=== PATIENT | male | born 1995 | race American Indian/Alaskan Native ===

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

== ENCOUNTER 2017-03-17 01:22 | Emergency (ER) | payer MEDICAID ==
[2017-03-17 01:22] VITALS: BMI 29.4
[2017-03-17 01:47] VITALS: BP 127/75; PULSE 94; RESP 18; TEMP 98.2; O2SAT 100
[2017-03-17] MEDS ORDERED: Sodium Chloride 0.9% 1,000 ML IV STA (01:49)
--- NOTE | 2017-03-17 01:51 | ED PDOC ---
HPI: SOB/CHF/COPD Time Seen by Provider: 03/17/17 01:49 Chief Complaint (Nursing): Shortness Of Breath Chief Complaint (Provider): SOB History Per: Patient (21 Y/O MALE H/O ASTHMA NOTED WITH ACUTE ASTHMA EXACERBATION AT HOME WITHOUT IMPROVEMENT DESPITE ALBUTEROL AT HOME. WAS GIVEN SOLUMEDROL/DUONEBX3 BY MEDICS AND FEELS IMPROVED.) Past Medical History Reviewed: Historical Data, Nursing Documentation, Vital Signs Vital Signs: Last Vital Signs Temp 98.2 F 03/17/17 01:31 Pulse 94 H 03/17/17 01:31 Resp 18 03/17/17 01:31 BP 127/75 03/17/17 01:31 Pulse Ox 100 03/18/17 03:47 - Medical History PMH: Asthma, Gastritis - Surgical History Surgical History: Tonsillectomy - Family History Family History: States: No Known Family Hx - Home Medications Home Medications: Ambulatory Orders Medication Instructions Recorded Dicyclomine [Bentyl] 20 mg PO Q6H PRN #20 tab 04/08/16 Ondansetron ODT [Zofran ODT] 4 mg PO QID #20 odt 04/08/16 Clotrimazole 1% [Lotrimin AF 1%] 1 applic TOP BID #1 bottle 07/03/16 Mask, Face [Nebulizer Aerosol Mask 1 dev XX PRN PRN #1 dev 03/17/17 Adult] Prednisone [Deltasone] 3 tab PO DAILY #12 tablet 03/17/17 Pseudoephedrine [Sudafed Tab] 60 mg PO Q6 PRN #20 tab 03/17/17 - Allergies Allergies/Adverse Reactions: Allergies Allergy/AdvReac Type Severity Reaction Status Date / Time FISH Allergy RASH Verified 07/03/16 23:27 Review of Systems ROS Statement: Except As Marked, All Systems Reviewed And Found Negative Physical Exam - Reviewed Nursing Documentation Reviewed: Yes Vital Signs Reviewed: Yes - Physical Exam Appears: Positive for: Well, Non-toxic, No Acute Distress Head Exam: Positive for: ATRAUMATIC, NORMAL INSPECTION, NORMOCEPHALIC Skin: Positive for: Normal Color, Warm, DRY Eye Exam: Positive for: EOMI, Normal appearance, PERRL ENT: Positive for: Normal ENT Inspection Neck: Positive for: Normal, Painless ROM Cardiovascular/Chest: Positive for: Regular Rate, Rhythm Respiratory: Positive for: Normal Breath Sounds, Wheezing (SLIGHT WHEEZE NOTED LEFT LOWER BASE) Gastrointestinal/Abdominal: Positive for: Normal Exam, Bowel Sounds, Soft Back: Positive for: Normal Inspection Extremity: Positive for: Normal ROM Neurologic/Psych: Positive for: Alert, Oriented - ECG O2 Sat by Pulse Oximetry: 100 - Progress ED Course And Treament: NS 1 LITER WIDE OPEN upon re-evaluation, patient feels improved with no respiratory distress. Disposition - Clinical Impression Clinical Impression: Asthma exacerbation - Patient ED Disposition Is Patient to be Admitted: No - Disposition Disposition: Routine/Home Disposition Time: 03:14 Condition: FAIR Prescriptions: Mask, Face [Nebulizer Aerosol Mask Adult] 1 dev XX PRN PRN #1 dev PRN Reason: Shortness Of Breath Prednisone [Deltasone] 3 tab PO DAILY #12 tablet Pseudoephedrine [Sudafed Tab] 60 mg PO Q6 PRN #20 tab PRN Reason: Nasal Congestion Instructions: Asthma (DC) Forms: [employer] (Icelandic)
== END 2017-03-17 03:14 | disposition home or self-care (01) ==
LOC: H.ER 01:22
DX: J45.901 Unspecified asthma with (acute) exacerbation (principal)
CPT/HCPCS: 99283; J7040

== ENCOUNTER 2017-05-12 10:58 | Emergency (ER) | payer MEDICAID ==
[2017-05-12 11:08] VITALS: BMI 24.5
[2017-05-12 11:30] VITALS: BP 117/85; PULSE 88; RESP 20; TEMP 97.9; O2SAT 99
[2017-05-12] MEDS ORDERED: Sodium Chloride 0.9% 1,000 ML IV STA (11:44)
--- NOTE | 2017-05-12 11:54 | ED PDOC ---
HPI: Abdomen Time Seen by Provider: 05/12/17 11:30 Chief Complaint (Nursing): Abdominal Pain Chief Complaint (Provider): Abdominal Pain History Per: Patient History/Exam Limitations: no limitations Onset/Duration Of Symptoms: Days (x5) Current Symptoms Are (Timing): Still Present Additional Complaint(s): 22 year old male with medical history of gastritis, presents to the emergency department with a complaint of mid-abdomen pain radiating to chest associated with small, hard stools ongoing for 5 days. Patient stated last bowel movement was also 5 days ago. He denied any fever, chills, vomiting, diarrhea, prior episodes or taking any medication for pain. PMD: none provided Past Medical History Reviewed: Historical Data, Nursing Documentation, Vital Signs Vital Signs: Last Vital Signs Temp 97.9 F 05/12/17 11:27 Pulse 88 05/12/17 11:27 Resp 20 05/12/17 11:27 BP 117/85 05/12/17 11:27 Pulse Ox 99 05/12/17 12:49 - Medical History PMH: Asthma, Gastritis - Surgical History Surgical History: Tonsillectomy Denies: No Surg Hx - Family History Family History: States: Unknown Family Hx - Social History Current smoker - smoking cessation education provided: No Alcohol: None Drugs: Denies - Home Medications Home Medications: Ambulatory Orders Medication Instructions Recorded Dicyclomine [Bentyl] 20 mg PO Q6H PRN #20 tab 04/08/16 Ondansetron ODT [Zofran ODT] 4 mg PO QID #20 odt 04/08/16 Clotrimazole 1% [Lotrimin AF 1%] 1 applic TOP BID #1 bottle 07/03/16 Mask, Face [Nebulizer Aerosol Mask 1 dev XX PRN PRN #1 dev 03/17/17 Adult] Prednisone [Deltasone] 3 tab PO DAILY #12 tablet 03/17/17 Pseudoephedrine [Sudafed Tab] 60 mg PO Q6 PRN #20 tab 03/17/17 Aluminum Hydroxide/Magnesium H 30 ml PO QID PRN #240 ml 05/12/17 [Maalox 30 ml] - Allergies Allergies/Adverse Reactions: Allergies Allergy/AdvReac Type Severity Reaction Status Date / Time FISH Allergy RASH Verified 05/12/17 11:27 Review of Systems ROS Statement: Except As Marked, All Systems Reviewed And Found Negative Constitutional: Negative for: Fever, Chills Gastrointestinal: Positive for: Abdominal Pain (mid), Other (small, hard stools) . Negative for: Vomiting, Diarrhea Neurological: Positive for: Other (syncope) Physical Exam - Reviewed Nursing Documentation Reviewed: Yes Vital Signs Reviewed: Yes - Physical Exam Appears: Positive for: Uncomfortable (mild) Head Exam: Positive for: ATRAUMATIC, NORMAL INSPECTION, NORMOCEPHALIC Skin: Positive for: Normal Color Eye Exam: Positive for: Normal appearance ENT: Positive for: Normal ENT Inspection Neck: Positive for: Normal, Painless ROM, Supple Cardiovascular/Chest: Positive for: Regular Rate, Rhythm, Chest Non Tender Respiratory: Positive for: Normal Breath Sounds. Negative for: Decreased Breath Sounds, Wheezing, Respiratory Distress Gastrointestinal/Abdominal: Positive for: Bowel Sounds (decreased), Soft, Tenderness (left-sided quadrants), Guarding (voluntary). Negative for: Rebound Back: Positive for: Normal Inspection. Negative for: L CVA Tenderness, R CVA Tenderness Extremity: Positive for: Normal ROM (upper/lower) Neurologic/Psych: Positive for: Alert (x3), Oriented. Negative for: Motor/ Sensory Deficits - Laboratory Results Result Diagrams: 05/12/17 12:00 05/12/17 12:00 - ECG O2 Sat by Pulse Oximetry: 99 (RA) Pulse Ox Interpretation: Normal Medical Decision Making Medical Decision Making: Initial Impression: Abdominal pain; Syncope Differential Diagnosis: Constipation; Acute intestinal disorder Initial Plan: * EKG * CMP * Drug screen, urine * Lipase * Urine dipstick * CBC * Xray obstructive series * NS 1,000ml IV per 1,000mls/hr * Toradol 30mg IV Time: 1213 --Xray obstructive series FINDINGS: CHEST: Lungs: Clear. Cardiovascular: Normal size heart. No pulmonary vascular congestion. Pleura: No pleural fluid. No pneumothorax. Other findings: None. ABDOMEN AND PELVIS: Bowel: Unremarkable bowel gas pattern. No evidence of mechanical obstruction. Free air: None. Bones: Unremarkable. Other findings: None. IMPRESSION: Unremarkable radiographs of chest and abdomen. No evidence of mechanical bowel obstruction. Time: 1245 --Labs reviewed: no significant abnormalities. --Drug screen: negative. Scribe Attestation: Documented by Emma Howe, acting as a scribe for Madelyn Pereira MD. Provider Scribe Attestation: All medical record entries made by the Scribe were at my direction and personally dictated by me. I have reviewed the chart and agree that the record accurately reflects my personal performance of the history, physical exam, medical decision making, and the department course for this patient. I have also personally directed, reviewed, and agree with the discharge instructions and disposition. 2.00pm patient without pain. labs and imaging normal. will discharge., Disposition - Clinical Impression Clinical Impression: Abdominal cramps - Patient ED Disposition Is Patient to be Admitted: No Doctor Will See Patient In The: Office Counseled Patient/Family Regarding: Diagnosis, Need For Followup, Rx Given - Disposition Referrals: [facility] [Outside] Disposition: Routine/Home Disposition Time: 14:15 Condition: IMPROVED Prescriptions: Aluminum Hydroxide/Magnesium H [Maalox 30 ml] 30 ml PO QID PRN #240 ml PRN Reason: abdominal cramps Forms: [employer] (Gabonese) - POA Present On Arrival: None
--- NOTE | 2017-05-12 12:15 | RAD ---
PROCEDURE: Radiographs of the chest and abdomen (obstructive series) HISTORY: abd pain; acute irregular BM COMPARISON: No prior. TECHNIQUE: AP radiograph of the chest, with upright and supine radiographs of the abdomen. FINDINGS: CHEST: Lungs: Clear. Cardiovascular: Normal size heart. No pulmonary vascular congestion. Pleura: No pleural fluid. No pneumothorax. Other findings: None. ABDOMEN AND PELVIS: Bowel: Unremarkable bowel gas pattern. No evidence of mechanical obstruction. Free air: None. Bones: Unremarkable. Other findings: None. IMPRESSION: Unremarkable radiographs of chest and abdomen. No evidence of mechanical bowel obstruction.
[2017-05-12 12:18] LABS: BASO % 0.3 % (0.0-2.0); EOS # 0.4 K/uL (0.0-0.7); EOS % 4.5 % (0.0-4.0); HEMOGLOBIN 16.5 g/dL (12.0-18.0); LYMPH # 2.8 K/uL (1.0-4.3); LYMPH % 29.4 % (20.0-40.0); MEAN CELL VOLUME 83.8 fl (80.0-94.0); MEAN CORPUSCULAR HEMOGLOBIN 29.2 pg (27.0-31.0); MEAN CORPUSCULAR HGB CONC 34.8 g/dL (33.0-37.0); MEAN PLATELET VOLUME 7.9 fl (7.2-11.7); MONO # 0.5 K/uL (0.0-0.8); NEUT # 5.8 K/uL (1.8-7.0); NEUT % 60.8 % (50.0-75.0); NRBC % 0.1 % (0.0-0.0); RBC 5.65 Mil/uL (4.40-5.90); RED CELL DISTRIBUTION WIDTH 13.2 % (11.5-14.5); WHITE BLOOD COUNT 9.5 K/uL (4.8-10.8)
[2017-05-12 12:30] LABS: ALB/GLOB RATIO 1.4 (1.0-2.1); ALBUMIN 4.6 g/dL (3.5-5.0); ALT/SGPT 36 U/L (21-72); AST/SGOT 25 U/L (17-59); BLOOD UREA NITROGEN 18 mg/dl (9-20); CALCIUM 10.1 mg/dL (8.4-10.2); GFR AFRICAN-AMERICAN > 60; GFR NON-AFRICAN AMERICAN > 60; LIPASE 87 U/L (23-300)
[2017-05-12 12:44] LABS: BARBITURATES, UR NEGATIVE (NEGATIVE); BENZODIAZEPINES, UR NEGATIVE (NEGATIVE); OPIATES, UR NEGATIVE (NEGATIVE); PHENCYCLIDINE, UR NEGATIVE (NEGATIVE)
--- NOTE | 2017-05-12 20:21 | CARD ---
APPROVED REPORT EKG Measurement Heart [id number] <Conclusion> Normal sinus rhythm Early repolarization Normal ECG
== END 2017-05-12 14:25 | disposition home or self-care (01) ==
LOC: H.ER 10:58
DX: R10.9 Unspecified abdominal pain (principal); J45.909 Unspecified asthma, uncomplicated
CPT/HCPCS: 74022; 80053; 80324; 80345; 80346; 80349; 80353; 80358; 80361; 83690; 83992; 85025; 93005; 96374; 99283; J1885; J7040

== ENCOUNTER 2017-07-03 23:19 | Emergency (ER) | payer MEDICAID ==
[2017-07-03 23:20] VITALS: BMI 24.5
[2017-07-03] MEDS ORDERED: Albuterol-Ipratrop 3 mg / 0.5 (3 ml) UD IH STA (23:34)
[2017-07-03] MEDS ORDERED: DiphenhydrAMINE 50 mg/ml Inj IV STA (23:34)
--- NOTE | 2017-07-03 23:36 | ED PDOC ---
HPI: SOB/CHF/COPD Time Seen by Provider: 07/03/17 23:27 Chief Complaint (Nursing): Shortness Of Breath Chief Complaint (Provider): shortness of breath History Per: Patient History/Exam Limitations: no limitations Onset/Duration Of Symptoms: Mins Current Symptoms Are (Timing): Still Present Additional Complaint(s): 22 y/o male history of asthma and seasonal/food allergies presents for evaluation of shortness of breath, onset prior to arrival. Patient states he was eating carrots and dip and then suddenly began to feel like he could not breathe. Denies facial swelling, rash, chest pain, palpitations, abdominal pain. Past Medical History Reviewed: Historical Data, Nursing Documentation, Vital Signs Vital Signs: Last Vital Signs Temp 98.1 F 07/03/17 23:23 Pulse 73 07/03/17 23:23 Resp BP 143/87 07/03/17 23:23 Pulse Ox 99 07/03/17 23:36 - Medical History PMH: Asthma, Gastritis - Surgical History Surgical History: Tonsillectomy - Family History Family History: States: Unknown Family Hx - Home Medications Home Medications: Ambulatory Orders Medication Instructions Recorded Dicyclomine [Bentyl] 20 mg PO Q6H PRN #20 tab 04/08/16 Ondansetron ODT [Zofran ODT] 4 mg PO QID #20 odt 04/08/16 Clotrimazole 1% [Lotrimin AF 1%] 1 applic TOP BID #1 bottle 07/03/16 Mask, Face [Nebulizer Aerosol Mask 1 dev XX PRN PRN #1 dev 03/17/17 Adult] Prednisone [Deltasone] 3 tab PO DAILY #12 tablet 03/17/17 Pseudoephedrine [Sudafed Tab] 60 mg PO Q6 PRN #20 tab 03/17/17 Aluminum Hydroxide/Magnesium H 30 ml PO QID PRN #240 ml 05/12/17 [Maalox 30 ml] Famotidine [Pepcid] 20 mg PO BID #8 tab 07/04/17 predniSONE [Prednisone] 60 mg PO DAILY #12 tab 07/04/17 - Allergies Allergies/Adverse Reactions: Allergies Allergy/AdvReac Type Severity Reaction Status Date / Time FISH Allergy RASH Verified 05/12/17 11:27 lactase [From Dairy Aid] Allergy RASH Verified 07/03/17 23:22 pollen extracts Allergy ITCHING Verified 07/03/17 23:22 Review of Systems ROS Statement: Except As Marked, All Systems Reviewed And Found Negative Respiratory: Positive for: Shortness of Breath Physical Exam - Reviewed Nursing Documentation Reviewed: Yes Vital Signs Reviewed: Yes - Physical Exam Appears: Positive for: Well, Non-toxic, Uncomfortable (auditory wheezing) Head Exam: Positive for: ATRAUMATIC, NORMAL INSPECTION, NORMOCEPHALIC ENT: Positive for: Normal ENT Inspection Cardiovascular/Chest: Positive for: Regular Rate, Rhythm Respiratory: Positive for: Wheezing Gastrointestinal/Abdominal: Positive for: Normal Exam Back: Positive for: Normal Inspection Extremity: Positive for: Normal ROM Neurologic/Psych: Positive for: Alert, Oriented - ECG O2 Sat by Pulse Oximetry: 99 - Progress ED Course And Treament: IV solumedrol, IV pepcid, IV benadryl, duoneb x2 On re-eval, patient states he is feeling better. Speaking in full sentences. Wheezing resolved. Patient states he takes antihistamine daily, has rescue inhaler at home. Advised to continue. Rx prednisone, pepcid provided Follow up PMD 2-3 days. Return precautions given Disposition - Clinical Impression Clinical Impression: Allergic bronchospasm due to dietary substance - Patient ED Disposition Is Patient to be Admitted: No Counseled Patient/Family Regarding: Diagnosis, Need For Followup, Rx Given - Disposition Disposition: Routine/Home Disposition Time: 01:53 Condition: IMPROVED Prescriptions: Famotidine [Pepcid] 20 mg PO BID #8 tab predniSONE [Prednisone] 60 mg PO DAILY #12 tab Instructions: Food Allergy Forms: [employer] (Central African)
[2017-07-03] MEDS ORDERED: Albuterol-Ipratrop 3 mg / 0.5 (3 ml) UD INH STA (23:37)
[2017-07-03] MEDS ORDERED: DiphenhydrAMINE 50 mg/ml Inj ONE (23:40)
[2017-07-03] MEDS ORDERED: Albuterol-Ipratrop 3 mg / 0.5 (3 ml) UD ONE (23:41)
[2017-07-04 05:27] VITALS: RESP 20
[2017-07-04 05:29] VITALS: BP 135/82; PULSE 78; TEMP 98.3; O2SAT 100
== END 2017-07-04 01:55 | disposition home or self-care (01) ==
LOC: H.ER 23:19
DX: J98.01 Acute bronchospasm (principal); T78.1XXA Other adverse food reactions, not elsewhere classified, initial encounter; J44.9 Chronic obstructive pulmonary disease, unspecified
CPT/HCPCS: 94640; 96374; 99284; J1200; J2930

== ENCOUNTER 2017-12-07 10:45 | Emergency (ER) | payer MEDICAID ==
[2017-12-07 10:45] VITALS: BMI 24.5
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
--- NOTE | 2017-12-07 15:13 | RAD ---
Date of service: 12/07/2017 PROCEDURE: Cervical Spine Radiographs. HISTORY: Posttraumatic pain COMPARISON: None available. FINDINGS: BONES: Alignment maintained. No fracture. Dens Intact. DISC SPACES: Normal. SOFT TISSUES: Normal. No prevertebral soft tissue swelling. OTHER FINDINGS: None. IMPRESSION: Normal cervical spine radiographs
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
[2017-12-07 17:08] VITALS: BP 128/70; PULSE 70; RESP 16; TEMP 97
[2017-12-09 13:08] VITALS: O2SAT 98
== END 2017-12-07 17:08 | disposition home or self-care (01) ==
LOC: H.ER 10:45
DX: S40.011A Contusion of right shoulder, initial encounter (principal); M54.2 Cervicalgia; Y93.55 Activity, bike riding; Y92.410 Unspecified street and highway as the place of occurrence of the external cause
CPT/HCPCS: 72052; 72070; 73030; 96372; 99284; J1885

== ENCOUNTER 2018-01-02 13:25 | Emergency (ER) | payer MEDICAID ==
[2018-01-02 13:26] VITALS: BMI 24.5
[2018-01-02 13:35] VITALS: O2SAT 99
--- NOTE | 2018-01-02 16:04 | ED PDOC ---
Lower Extremity Pain/Injury Time Seen by Provider: 01/02/18 14:53 Chief Complaint (Nursing): Lower Extremity Problem/Injury Chief Complaint (Provider): Lower Extremity Problem/Injury History Per: Patient History/Exam Limitations: no limitations Onset/Duration Of Symptoms: Days (x2 days ) Current Symptoms Are (Timing): Still Present Additional Complaint(s): Kamar Garza is a 22 year old male with a past medical history of asthma and seasonal allergies, who presents to the emergency department complaining of left calf pain, onset x2 days ago. Patient took ibuprofen and tylenol and muscle relaxer with no relief of symptoms. He denies any trauma, inciting incident, however, earlier in the day prior tot he pain, he was at [employer] jumping up and down. Patient denies shortness of breath, chest pain, knee pain, ankle pain, calf swelling, recent travel, recent long distance travel. PMD: Nancie Wan Past Medical History Reviewed: Historical Data, Nursing Documentation, Vital Signs Vital Signs: Last Vital Signs Temp 97.4 F L 01/02/18 13:33 Pulse 84 01/02/18 13:33 Resp 16 01/02/18 13:33 BP 117/84 01/02/18 13:33 Pulse Ox 99 01/02/18 13:33 - Medical History PMH: Asthma, Gastritis - Surgical History Surgical History: Tonsillectomy - Family History Family History: States: Unknown Family Hx - Home Medications Home Medications: Ambulatory Orders Medication Instructions Recorded Dicyclomine [Bentyl] 20 mg PO Q6H PRN #20 tab 04/08/16 Ondansetron ODT [Zofran ODT] 4 mg PO QID #20 odt 04/08/16 Clotrimazole 1% [Lotrimin AF 1%] 1 applic TOP BID #1 bottle 07/03/16 Mask, Face [Nebulizer Aerosol Mask 1 dev XX PRN PRN #1 dev 03/17/17 Adult] Prednisone [Deltasone] 3 tab PO DAILY #12 tablet 03/17/17 Pseudoephedrine [Sudafed Tab] 60 mg PO Q6 PRN #20 tab 03/17/17 Aluminum Hydroxide/Magnesium H 30 ml PO QID PRN #240 ml 05/12/17 [Maalox 30 ml] Famotidine [Pepcid] 20 mg PO BID #8 tab 07/04/17 predniSONE [Prednisone] 60 mg PO DAILY #12 tab 07/04/17 Naproxen [Naprosyn] 500 mg PO BID PRN #15 tablet 12/07/17 Ibuprofen [Motrin Tab] 600 mg PO Q6 PRN 5 Days tab 01/02/18 - Allergies Allergies/Adverse Reactions: Allergies Allergy/AdvReac Type Severity Reaction Status Date / Time FISH Allergy RASH Verified 12/07/17 11:00 pollen extracts Allergy ITCHING Verified 12/07/17 11:00 dairy Allergy RASH Uncoded 01/02/18 13:33 seafood Allergy RASH Uncoded 01/02/18 13:33 Review of Systems ROS Statement: Except As Marked, All Systems Reviewed And Found Negative Cardiovascular: Negative for: Chest Pain Respiratory: Negative for: Shortness of Breath Musculoskeletal: Positive for: Leg Pain (calf swelling). Negative for: Other (knee and ankle pain) Physical Exam - Reviewed Nursing Documentation Reviewed: Yes Vital Signs Reviewed: Yes - Physical Exam Appears: Positive for: No Acute Distress Cardiovascular/Chest: Positive for: Regular Rate, Rhythm. Negative for: Murmur Respiratory: Positive for: Normal Breath Sounds. Negative for: Respiratory Distress Extremity: Positive for: Normal ROM (in the left knee and ankle), Tenderness (Left leg; mild TTP of the calf muscle; no cords noted). Negative for: Swelling, Other (erythema ) Neurologic/Psych: Positive for: Alert, Oriented (x3) - ECG O2 Sat by Pulse Oximetry: 99 (RA) Pulse Ox Interpretation: Normal Medical Decision Making Medical Decision Making: Initial Time: 15:41 Initial Plan: --Left lower extremity vein duplex --Ibuprofen 600 mg PO 17:19 US FINDINGS: 2-D, color and duplex Doppler analysis of the lower extremity venous circulation using routine protocol from the femoral veins through the popliteal veins. Venous compressibility: Normal. Flow and augmentation patterns: Normal. Visualized veins upper third of calf: Normal. Wan cyst: None. There is an enlarged 1.7 x 1.0 x 0.5 cm inguinal lymph node. IMPRESSION: No sonographic or Doppler evidence for DVT in left lower extremity. Solitary enlarged left inguinal lymph node. Scribe Attestation: Documented by Mathieu Marmolejo, acting as a scribe for Joyce Jalloh PA-C. Provider Scribe Attestation: All medical record entries made by the Scribe were at my direction and personally dictated by me. I have reviewed the chart and agree that the record accurately reflects my personal performance of the history, physical exam, medical decision making, and the department course for this patient. I have also personally directed, reviewed, and agree with the discharge instructions and disposition. Disposition - Clinical Impression Clinical Impression: Strain of calf muscle - Patient ED Disposition Is Patient to be Admitted: No Counseled Patient/Family Regarding: Studies Performed, Diagnosis - Disposition Disposition: Routine/Home Disposition Time: 17:56 Condition: STABLE Additional Instructions: F/u with your primary care doctor for further evaluation if pain persists despite medication. Would recommend gentle stretching when pain improves. Prescriptions: Ibuprofen [Motrin Tab] 600 mg PO Q6 PRN 5 Days tab PRN Reason: Pain, Moderate (4-7) Instructions: Lower Extremity Muscle Strain (DC) Forms: [employer] (Czech) Print Language: UZBEK
--- NOTE | 2018-01-02 17:22 | US ---
Date of service: 01/02/2018 HISTORY: calf pain x several days. PRIORS: None. FINDINGS: 2-D, color and duplex Doppler analysis of the lower extremity venous circulation using routine protocol from the femoral veins through the popliteal veins. Venous compressibility: Normal. Flow and augmentation patterns: Normal. Visualized veins upper third of calf: Normal. Wan cyst: None. There is an enlarged 1.7 x 1.0 x 0.5 cm inguinal lymph node. IMPRESSION: No sonographic or Doppler evidence for DVT in left lower extremity. Solitary enlarged left inguinal lymph node.
[2018-01-02 17:58] VITALS: BP 122/78; PULSE 88; RESP 18; TEMP 97.7
== END 2018-01-02 17:57 | disposition home or self-care (01) ==
LOC: H.ER 13:25
DX: S86.112A Strain of other muscle(s) and tendon(s) of posterior muscle group at lower leg level, left leg, initial encounter (principal); X50.9XXA Other and unspecified overexertion or strenuous movements or postures, initial encounter; Y92.89 Other specified places as the place of occurrence of the external cause

== ENCOUNTER 2018-02-19 14:44 | Emergency (ER) | payer MEDICAID ==
[2018-02-19 14:44] VITALS: BMI 24.5
[2018-02-19] MEDS ORDERED: Albuterol-Ipratrop 3 mg / 0.5 (3 ml) UD INH STA ×3 (15:16→15:17)
[2018-02-19] MEDS ORDERED: Albuterol-Ipratrop 3 mg / 0.5 (3 ml) UD ONE (15:25)
[2018-02-19 16:26] VITALS: RESP 20
--- NOTE | 2018-02-19 16:57 | ED PDOC ---
HPI: SOB/CHF/COPD Time Seen by Provider: 02/19/18 15:03 Chief Complaint (Nursing): Shortness Of Breath Chief Complaint (Provider): Shortness Of Breath History Per: Patient History/Exam Limitations: no limitations Onset/Duration Of Symptoms: Hrs Additional Complaint(s): Patient is a 22 y/o male with a PMHx of asthma and gastritis who presents to the ED for evaluation of SOB, onset today. Patient denies wheezing, illnesses, or other problems. Patient had an asthma attack with exacerbation one year ago. The patient has no previous intubation or hospitalization. Of note, patient does not have pump at home. PCP: Dr. Nancie Wan Past Medical History Reviewed: Historical Data, Nursing Documentation, Vital Signs Vital Signs: Last Vital Signs Temp 97.8 F 02/19/18 14:49 Pulse 83 02/19/18 16:25 Resp 20 02/19/18 16:25 BP 136/78 02/19/18 16:25 Pulse Ox 100 02/19/18 16:25 - Medical History PMH: Asthma (last exacerbation one year ago), Gastritis - Surgical History Surgical History: Tonsillectomy - Family History Family History: States: Unknown Family Hx - Home Medications Home Medications: Ambulatory Orders Medication Instructions Recorded Dicyclomine [Bentyl] 20 mg PO Q6H PRN #20 tab 04/08/16 Ondansetron ODT [Zofran ODT] 4 mg PO QID #20 odt 04/08/16 Clotrimazole 1% [Lotrimin AF 1%] 1 applic TOP BID #1 bottle 07/03/16 Mask, Face [Nebulizer Aerosol Mask 1 dev XX PRN PRN #1 dev 03/17/17 Adult] Prednisone [Deltasone] 3 tab PO DAILY #12 tablet 03/17/17 Pseudoephedrine [Sudafed Tab] 60 mg PO Q6 PRN #20 tab 03/17/17 Aluminum Hydroxide/Magnesium H 30 ml PO QID PRN #240 ml 05/12/17 [Maalox 30 ml] Famotidine [Pepcid] 20 mg PO BID #8 tab 07/04/17 predniSONE [Prednisone] 60 mg PO DAILY #12 tab 07/04/17 Naproxen [Naprosyn] 500 mg PO BID PRN #15 tablet 12/07/17 Ibuprofen [Motrin Tab] 600 mg PO Q6 PRN 5 Days tab 01/02/18 - Allergies Allergies/Adverse Reactions: Allergies Allergy/AdvReac Type Severity Reaction Status Date / Time FISH Allergy RASH Verified 12/07/17 11:00 pollen extracts Allergy ITCHING Verified 12/07/17 11:00 dairy Allergy RASH Uncoded 01/02/18 13:33 seafood Allergy RASH Uncoded 01/02/18 13:33 Review of Systems ROS Statement: Except As Marked, All Systems Reviewed And Found Negative Respiratory: Positive for: Shortness of Breath Physical Exam - Reviewed Nursing Documentation Reviewed: Yes Vital Signs Reviewed: Yes - Physical Exam Appears: Positive for: No Acute Distress Head Exam: Positive for: ATRAUMATIC, NORMAL INSPECTION, NORMOCEPHALIC Skin: Positive for: Normal Color Eye Exam: Positive for: Normal appearance Neck: Positive for: Normal Cardiovascular/Chest: Positive for: Regular Rate, Rhythm Respiratory: Positive for: Wheezing (Bilateral), Other (Decrease Air Entry) Gastrointestinal/Abdominal: Positive for: Normal Exam Extremity: Positive for: Normal ROM (Upper/Lower) Neurologic/Psych: Positive for: Alert, Oriented - ECG O2 Sat by Pulse Oximetry: 100 (RA) Pulse Ox Interpretation: Normal Medical Decision Making Medical Decision Making: Time: 1453 Impression: Acute Asthma Exacerbation Reassessment Plan: EKG Albuterol/Ipratropium 3ml INH (x2) [Solu-Medrol] 125 mg IVP Peak Flow Pre/Post TX . Pre/Post Treatment 1733 Pt with improved symptoms. Pt given Rx for nebulizer and pump. Rx given for prednisone per patient request. Pt to follow up at [place] in 3-5 days. Scribe Attestation: Documented by Dat Zuulaga, acting as a scribe for Sydnee Jacobs MD. Provider Scribe Attestation: All medical record entries made by the Scribe were at my direction and personally dictated by me. I have reviewed the chart and agree that the record accurately reflects my personal performance of the history, physical exam, medical decision making, and the department course for this patient. I have also personally directed, reviewed, and agree with the discharge instructions and disposition. Disposition - Disposition Disposition: Routine/Home Disposition Time: 17:36 Condition: IMPROVED Forms: [employer] (Bulgarian)
[2018-02-19 18:37] VITALS: BP 125/66; PULSE 82; TEMP 97.7; O2SAT 99
--- NOTE | 2018-02-20 20:25 | CARD ---
APPROVED REPORT Date of service: 02/19/2018 EKG Measurement Heart [id number] <Conclusion> Normal sinus rhythm ST elevation, probably due to early repolarization Borderline ECG
== END 2018-02-19 18:38 | disposition home or self-care (01) ==
LOC: H.ER 14:44
DX: J45.901 Unspecified asthma with (acute) exacerbation (principal); J44.9 Chronic obstructive pulmonary disease, unspecified
CPT/HCPCS: 93005; 96374; 99284; J2930